=== PATIENT | male | born 1965 | race American Indian/Alaskan Native ===

== ENCOUNTER 2019-06-26 23:32 | Inpatient (IN) | payer MEDICAID ==
[2019-06-27] MEDS ORDERED: MORPHINE 4 MG/1 ML INJ IV ONE (00:04)
[2019-06-27] MEDS ORDERED: ASPIRIN 325 MG TAB PO ONE (00:04)
[2019-06-27] MEDS ORDERED: IPRATROPIUM 0.02% NEBU 2.5 ML IH ONE (00:04)
[2019-06-27] MEDS ORDERED: ALBUTEROL 2.5 MG/3 ML NEBU IH ONE (00:04)
[2019-06-27] MEDS ORDERED: NITROGLYCERIN 2% OINT 1 GM TP ONE (00:04)
[2019-06-27 00:36] LABS: Basophils # (Auto) 0.1 K/mm3 (0.0-0.1); Basophils % (Auto) 1.3 % (0.0-1.8); Eosinophils # (Auto) 0.2 K/mm3 (0.0-0.4); Eosinophils % (Auto) 2.6 % (0.0-4.3); Hematocrit 38.3 % (35.5-45.6); Hemoglobin 13.1 gm/dl (11.8-15.2); Lymphocytes # (Auto) 1.1 K/mm3 (1.2-5.4); Lymphocytes % (Auto) 18.3 % (13.4-35.0); Mean Corpuscular HGB Conc 34 % (32-34); Mean Corpuscular Volume 92 fl (84-94); Monocytes # (Auto) 0.5 K/mm3 (0.0-0.8); Monocytes % (Auto) 8.1 % (0.0-7.3); Platelet Count 254 K/mm3 (140-440); Red Blood Count 4.18 M/mm3 (3.65-5.03); Red Cell Distribution Width 15.9 % (13.2-15.2)
[2019-06-27 00:49] LABS: INR 1.24 (0.87-1.13)
[2019-06-27 00:50] LABS: Partial Thromboplastin Time 31.5 Sec. (24.2-36.6)
[2019-06-27 00:59] LABS: Calcium 9.2 mg/dL (8.4-10.2)
--- NOTE | 2019-06-27 01:11 | XRay Report ---
CHEST 1 VIEW INDICATION: CP. COMPARISON: none FINDINGS: SUPPORT DEVICES: None. HEART / MEDIASTINUM: No significant abnormality. LUNGS / PLEURA: No significant pulmonary or pleural abnormality. No pneumothorax. ADDITIONAL FINDINGS: IMPRESSION: 1. No acute findings. Signer Name: Romain Osman MD Signed: 06/27/2019 1:06 AM Workstation Name: [id number]
[2019-06-27] MEDS ORDERED: ONDANSETRON 4 MG/2 ML INJ ONE (02:11)
--- NOTE | 2019-06-27 02:15 | Emergency Department Report ---
ED Chest Pain HPI - General Stated Complaint: CHEST PAIN Time Seen by Provider: 06/26/19 23:52 - History of Present Illness Initial Comments: Patient is a 54-year-old -Burmese male with a past history of hypertension congestive heart failure with a EF of who is scheduled to have her AICD placed August 2019 as well as diabetes hypokalemia who is presenting with chest pain. Patient states approximately 1:30 PM yesterday the patient was having R even with his girlfriend and started having some heaviness in the chest. Patient states even after the argument was done and he calmed down his chest pain persisted. He has associated shortness of breath. Patient denies cough cold congestion fevers chills nausea vomiting diarrhea. Did have some diaphoresis. Patient was in the hospital at another facility approximately week ago. Patient states he was told he should've stayed in the hospital longer. He decided to leave. Patient's when asked did he have a cardiac cath states he believes he did is unsure of the results. Patient states he does not believe he has any stents at this time. Patient states pain is 8 out of 10 in severity as a heaviness. Severity scale (0 -10): 6 - Related Data Allergies Allergy/AdvReac Type Severity Reaction Status Date / Time shellfish derived Allergy Anaphylaxis Verified 06/27/19 00:29 Heart Score - HEART Score History: Moderately suspicious EKG: Non-specific Age: 45-65 Risk factors: > 3 risk factors or hx of atherosclerotic disease Troponin: 1-3x normal limit HEART Score: 6 ED Review of Systems ROS: Stated complaint: CHEST PAIN Other details as noted in HPI Comment: All other systems reviewed and negative ED Physical Exam - General General appearance: alert, in no apparent distress - Head Head exam: Present: atraumatic, normocephalic - Eye Eye exam: Present: normal appearance, PERRL, EOMI - ENT ENT exam: Present: mucous membranes moist - Neck Neck exam: Present: normal inspection - Respiratory Respiratory exam: Present: respiratory distress, wheezes (mild). Absent: normal lung sounds bilaterally, rales, rhonchi, chest wall tenderness - Cardiovascular Cardiovascular Exam: Present: regular rate, normal rhythm, normal heart sounds. Absent: systolic murmur, diastolic murmur, rubs, gallop - GI/Abdominal GI/Abdominal exam: Present: soft, normal bowel sounds. Absent: distended, tenderness, guarding, rebound - Rectal Rectal exam: Present: deferred - Extremities Exam Extremities exam: Present: normal inspection - Back Exam Back exam: Present: normal inspection - Neurological Exam Neurological exam: Present: alert, oriented X3 - Psychiatric Psychiatric exam: Present: normal affect, normal mood - Skin Skin exam: Present: warm, dry, intact, normal color. Absent: rash ED Course Vital Signs 06/27/19 06/27/19 00:36 00:51 Pulse Rate [ 90 Bilateral Throughout] Respiratory 18 Rate Respiratory 17 Rate [Bilateral Throughout] FRANKIE score - Frankie Score Age > 65: (0) No Aspirin use within the Past 7 Days: (1) Yes 3 or more CAD Risk Factors: (1) Yes 2 or more Angina events in past 24 hrs: (1) Yes Known CAD with more than 50% Stenosis: (0) No Elevated Cardiac Markers: (1) Yes ST Deviation Greater than 0.5mm: (0) No FRANKIE Score: 4 ED Medical Decision Making - Lab Data Result diagrams: 06/27/19 00:20 06/27/19 00:20 - EKG Data 06/27/19 02:15 EKG shows a sinus rhythm rate of 87 axis is normal intervals do show a prolonged QT. There is no ST segment elevations or depressions. T waves inverted laterally. Time of interpretation is 138 - Radiology Data CHEST 1 VIEW INDICATION: CP. COMPARISON: none FINDINGS: SUPPORT DEVICES: None. HEART / MEDIASTINUM: No significant abnormality. LUNGS / PLEURA: No significant pulmonary or pleural abnormality. No pneumothorax. ADDITIONAL FINDINGS: IMPRESSION: 1. No acute findings. Signer Name: Romain Osman MD Signed: 06/27/2019 1:06 AM Workstation Name: [id number] Transcribed By: WG Dictated By: Romain Osman MD Electronically Authenticated By: Romain Osman MD Signed Date/Time: 06/27/19 0106 - Medical Decision Making Patient is a 54-year-old Burmese male with significant cardiac history who is presenting with chest pain. Patient is a heart score of 6 time. The results of the patient's last cardiac catheter unknown. Patient to be admitted to the hospitalist service for cardiac evaluation. Patient's troponin was in the walker zone and serial troponins will be needed to fully rule out acute coronary syndrome. Patient received neb treatment for mild COPD exacerbation. Critical Care Time: Yes (30) Critical care attestation.: If time is entered above; I have spent that time in minutes in the direct care of this critically ill patient, excluding procedure time. ED Disposition Clinical Impression: Unstable angina, COPD with exacerbation Disposition: OP ADMIT IP TO THIS HOSP Is pt being admited?: Yes Does the pt Need Aspirin: Yes Condition: Stable Instructions: Angina (ED), Chronic Obstructive Pulmonary Disease (ED) Time of Disposition: 02:18
[2019-06-27] MEDS ORDERED: ACETAMINOPHEN 325 MG TAB PO PRN (03:02)
[2019-06-27] MEDS ORDERED: NITROGLYCERIN 0.4 MG TAB SUBL SL PRN (03:02)
[2019-06-27] MEDS ORDERED: MORPHINE 2 MG/1 ML INJ IV PRN ×2 (03:02)
[2019-06-27] MEDS ORDERED: DEXTROSE 50% IN WATER (25GM) 50 ML SYRINGE IV PRN (03:02)
[2019-06-27] MEDS: ONDANSETRON 4 MG/2 ML INJ IV PRN (03:15)
--- NOTE | 2019-06-27 03:28 | History and Physical Report ---
History of Present Illness Date of examination: 06/27/19 Date of admission: 06/27/19 Chief complaint: Chest pain History of present illness: 54-year-old -Swazi male with known history of hypertension, diabetes mellitus, COPD, congestive heart failure with ejection fraction of 10%. He presents to the emergency room complaining of chest pain. Chest pain felt like heaviness on his chest in the midsternal area. There was no radiation. Denies any tingling or numbness in his upper extremities. He indicates he was having an argument with his girlfriend after which chest pain started. He was just recently discharged from [facility] few days ago where he indicates that he had cardiac catheterization. He does not recall whether any abnormality was found and he does not recall having any stent placement. He however is scheduled for AICD placement in August next year. There is no known relieving factor for his chest pain but it is worse on exertion. He had associated diaphoresis and shortness of breath. He denies any nausea vomiting vomiting, no fever or chills, no headache or dizziness. Upon arrival in the emergency room he was found to be wheezing and was subsequently placed on nebulizing treatment. Past History Past Medical History: COPD, diabetes, heart failure, hypertension Past Surgical History: Other (Right nephrectomy) Social history: no significant social history Family history: cancer (Mother had throat cancer, sister had breast cancer.) Medications and Allergies Allergies Allergy/AdvReac Type Severity Reaction Status Date / Time shellfish derived Allergy Anaphylaxis Verified 06/27/19 00:29 Home Medications Medication Instructions Recorded Confirmed Last Taken Type Aspirin [Aspirin BABY CHEW TAB] 81 mg PO QDAY 06/27/19 06/27/19 Unknown History AtorvaSTATin [Lipitor] 10 mg PO QHS 06/27/19 06/27/19 Unknown History Insulin Glargine [Lantus VIAL] 40 unit SUB-Q QHS 06/27/19 06/27/19 Unknown History Insulin Lispro [Humalog 100 0.25 units SQ AC 06/27/19 06/27/19 Unknown History UNITS/ML Kwikpen] Isosorbide Dinitrate [Isordil 20 mg PO TID 06/27/19 06/27/19 Unknown History Titradose] Losartan Potassium 100 mg PO QDAY 06/27/19 06/27/19 Unknown History Melatonin 3 mg PO QHS 06/27/19 06/27/19 Unknown History Torsemide [Demadex] 20 mg PO QDAY 06/27/19 06/27/19 Unknown History carvediloL [Coreg] 6.25 mg PO BID 06/27/19 06/27/19 Unknown History hydrALAZINE [Apresoline TAB] 10 mg PO Q8H 06/27/19 06/27/19 Unknown History Active Meds: Active Medications Acetaminophen (Tylenol) 650 mg PO Q4H PRN PRN Reason: Pain MILD(1-3)/Fever >100.5/ALFARO Albuterol/Ipratropium (Duoneb *Not For Prn Use*) 1 ampul IH Q6HRT NANCY Aspirin (Ecotrin) 325 mg PO QDAY NANCY Dextrose (D50w (25gm) Syringe) 50 ml IV Q30MIN PRN; Protocol PRN Reason: Hypoglycemia Insulin Human Lispro (Humalog) 0 unit SUB-Q ACHS NANCY; Protocol Methylprednisolone Sodium Succinate (Solu-Medrol) 40 mg IV Q8HR NANCY Morphine Sulfate (Morphine) 2 mg IV Q4H PRN PRN Reason: Pain, Moderate (4-6) Morphine Sulfate (Morphine) 2 mg IV Q5MIN PRN PRN Reason: Chest Pain unrelieved by NTG Nitroglycerin (Nitrostat) 0.4 mg SL Q5M PRN PRN Reason: Chest Pain Ondansetron HCl (Zofran) 4 mg IV Q8H PRN PRN Reason: Nausea And Vomiting Sodium Chloride (Sodium Chloride Flush Syringe 10 Ml) 10 ml IV BID NANCY Sodium Chloride (Sodium Chloride Flush Syringe 10 Ml) 10 ml IV PRN PRN PRN Reason: LINE FLUSH Review of Systems Cardiovascular: chest pain, dyspnea on exertion Respiratory: shortness of breath, wheezing Exam - Constitutional Vitals: Temp Pulse Resp BP Pulse Ox 84 18 124/89 06/27/19 01:00 06/27/19 01:06 06/27/19 01:00 General appearance: Present: no acute distress, well-nourished - EENT Eyes: Present: PERRL, EOM intact ENT: hearing intact, clear oral mucosa, dentition normal - Neck Neck: Present: supple, normal ROM - Respiratory Respiratory: bilateral: wheezing - Cardiovascular Rhythm: regular Heart Sounds: Present: S1 & S2 - Extremities Extremities: no ischemia, pulses intact, pulses symmetrical, Full ROM Extremity abnormal: edema (1+ bilateral ankle edema) Peripheral Pulses: within normal limits - Abdominal General gastrointestinal: Present: soft, non-tender, non-distended, normal bowel sounds - Integumentary Integumentary: Present: clear, warm, dry - Musculoskeletal Musculoskeletal: strength equal bilaterally - Psychiatric Psychiatric: appropriate mood/affect, intact judgment & insight, cooperative - Neurologic Neurologic: CNII-XII intact, moves all extremities Results - Labs CBC & Chem 7: 06/27/19 03:19 06/27/19 03:19 Labs: Abnormal lab results 06/27/19 06/27/19 06/27/19 Range/Units 00:20 00:20 00:20 RDW 15.9 H (13.2-15.2) % [place] % (Auto) 8.1 H (0.0-7.3) % Lymph # 1.1 L (1.2-5.4) K/mm3 PT 15.8 H (12.2-14.9) Sec. INR 1.24 H (0.87-1.13) Potassium 3.4 L (3.6-5.0) mmol/L BUN 40 H (9-20) mg/dL Creatinine 3.0 H (0.8-1.5) mg/dL Glucose 152 H (75-100) mg/dL Troponin T 0.040 H (0.00-0.029) ng/mL NT-Pro-B Natriuret Pep 6692 H (0-900) pg/mL Assessment and Plan - Patient Problems (1) Unstable angina Current Visit: Yes Status: Acute Plan to address problem: Patient admitted to telemetry. We will monitor EKG and also monitor cardiac enzymes. We will place a consult to cardiology for further evaluation and recommendation. Patient placed on daily aspirin, sublingual nitroglycerin and IV morphine as needed for chest pain (2) COPD with exacerbation Current Visit: Yes Status: Acute Plan to address problem: Patient placed on nebulizing treatments and also on IV steroid. We will keep oxygen saturation greater or equal to 92%. (3) JEREMY (acute kidney injury) Current Visit: Yes Status: Acute Plan to address problem: We will monitor BUN and creatinine. Will place diuretics on hold at this time. We await further recommendation from cardiology in view of his history of conges tive heart failure. (4) Diabetes mellitus Current Visit: Yes Status: Acute Plan to address problem: We will monitor Accu-Cheks and resume patient's routine home medications. (5) DVT prophylaxis Current Visit: Yes Status: Acute Plan to address problem: We will place patient on subcutaneous heparin. (6) Full code status Current Visit: Yes Status: Acute
[2019-06-27 03:45] LABS: Basophils # (Auto) 0.1 K/mm3 (0.0-0.1); Basophils % (Auto) 1.2 % (0.0-1.8); Eosinophils # (Auto) 0.1 K/mm3 (0.0-0.4); Eosinophils % (Auto) 2.8 % (0.0-4.3); Hematocrit 36.8 % (35.5-45.6); Hemoglobin 12.3 gm/dl (11.8-15.2); Lymphocytes # (Auto) 1.1 K/mm3 (1.2-5.4); Lymphocytes % (Auto) 22.7 % (13.4-35.0); Mean Corpuscular HGB Conc 33 % (32-34); Mean Corpuscular Volume 92 fl (84-94); Monocytes # (Auto) 0.6 K/mm3 (0.0-0.8); Monocytes % (Auto) 11.9 % (0.0-7.3); Platelet Count 230 K/mm3 (140-440); Red Blood Count 4.02 M/mm3 (3.65-5.03); Red Cell Distribution Width 15.7 % (13.2-15.2)
[2019-06-27 04:07] LABS: Calcium 9.2 mg/dL (8.4-10.2)
[2019-06-27] MEDS: methylPREDNISolone Sod Succinate 40 MG/1 ML INJ IV SCH ×3 (05:40→21:55)
[2019-06-27 06:10] LABS: Chol/HDL Ratio 4.16 %
[2019-06-27] MEDS: IPRATROPIUM/ALBUTEROL SULFATE 3 ML AMPUL.NEB IH SCH ×3 (07:28→21:09)
[2019-06-27] MEDS ORDERED: INSULIN LISPRO SQ SCH (07:30)
[2019-06-27] MEDS: INSULIN LISPRO 100 UNIT/ML SUB-Q SCH ×4 (08:08→22:06)
[2019-06-27] MEDS ORDERED: NON-FORMULARY EACH (Losartan Potassium [Losartan Potassium] 100 MG) PO SCH (10:00)
[2019-06-27] MEDS: LOSARTAN 50 MG TAB PO SCH (10:17)
[2019-06-27] MEDS: hydrALAZINE 10 MG TAB PO SCH ×2 (10:18→17:28)
[2019-06-27] MEDS: HEPARIN 5,000 UNIT/1 ML VIAL SUB-Q SCH ×2 (10:18→17:28)
[2019-06-27] MEDS: ISOSORBIDE DINITRATE 20 MG TAB PO SCH ×3 (10:18→21:57)
[2019-06-27] MEDS: carvediloL 6.25 MG TAB PO SCH ×2 (10:18→21:55)
[2019-06-27 11:20] LABS: Amphetamine Screen,Urine PRESUMPTIVE NEGATIVE; Benzodiazepines Screen,Urine PRESUMPTIVE NEGATIVE; Cannabinoid Screen,Urine PRESUMPTIVE NEGATIVE; Cocaine Screen,Urine PRESUMPTIVE NEGATIVE; Methadone Screen,Urine PRESUMPTIVE NEGATIVE; Opiate Screen,Urine PRESUMPTIVE NEGATIVE
--- NOTE | 2019-06-27 14:01 | Consultation ---
History of Present Illness Consult date: 06/27/19 Consult reason: chest pain (Patient was discahrged from [facility] after hospitalization for 12 days only few days before,yesterday he started having anterior,retrosternal/left sided chest pains,starting in afternoon and not getting better,hence he came to ER,was evaluated and admiited for futher managenet.) History of present illness: Patient was recently discharged from [facility]. It appears patient had extensive cardiac workup. He uses a history that his ejection fraction is 10%, and he is planning to have ICD inserted in July. He is being followed by a block sawyer in name of which he does not remember. He admits to having multiple testing done. He presented to the emergency room at [facility] because of persistent chest pain. No shortness of breath. No leg swelling. Patient use history of essential hypertension of many many years duration, history of diabetes mellitus of more than 12 years duration. Also admits to having bronchial asthma. Used to smoke in the past but not presently. Use to drink alcohol quite a bit but presently drinks only small amount according to him. No drug abuse. Denied any orthopnea, no palpitations, no leg swelling. No fever, no chills. No coughing. Past History Past Medical History: COPD, diabetes (>10 years.), heart failure, hypertension (very long standing duration.) Past Surgical History: Other (Right nephrectomy,few years ago.) Social history: no significant social history Family history: cancer (Mother had throat cancer, sister had breast cancer.) Medications and Allergies Allergies Allergy/AdvReac Type Severity Reaction Status Date / Time shellfish derived Allergy Anaphylaxis Verified 06/27/19 00:29 Home Medications Medication Instructions Recorded Confirmed Last Taken Type Aspirin [Aspirin BABY CHEW TAB] 81 mg PO QDAY 06/27/19 06/27/19 Unknown History AtorvaSTATin [Lipitor] 10 mg PO QHS 06/27/19 06/27/19 Unknown History Insulin Glargine [Lantus VIAL] 40 unit SUB-Q QHS 06/27/19 06/27/19 Unknown Hi story Insulin Lispro [Humalog 100 0.25 units SQ AC 06/27/19 06/27/19 Unknown History UNITS/ML Kwikpen] Isosorbide Dinitrate [Isordil 20 mg PO TID 06/27/19 06/27/19 Unknown History Titradose] Losartan Potassium 100 mg PO QDAY 06/27/19 06/27/19 Unknown History Melatonin 3 mg PO QHS 06/27/19 06/27/19 Unknown History Torsemide [Demadex] 20 mg PO QDAY 06/27/19 06/27/19 Unknown History carvediloL [Coreg] 6.25 mg PO BID 06/27/19 06/27/19 Unknown History hydrALAZINE [Apresoline TAB] 10 mg PO Q8H 06/27/19 06/27/19 Unknown History Active Meds: Active Medications Acetaminophen (Tylenol) 650 mg PO Q4H PRN PRN Reason: Pain MILD(1-3)/Fever >100.5/ALFARO Albuterol/Ipratropium (Duoneb *Not For Prn Use*) 1 ampul IH Q6HRT [facility] Last Admin: 06/27/19 13:08 Dose: 1 ampul Documented by: Aspirin (Ecotrin) 325 mg PO QDAY [facility] Atorvastatin Calcium (Atorvastatin) 10 mg PO QHS [facility] Carvedilol (Coreg) 6.25 mg PO BID [facility] Last Admin: 06/27/19 10:18 Dose: 6.25 mg Documented by: Dextrose (D50w (25gm) Syringe) 50 ml IV Q30MIN PRN; Protocol PRN Reason: Hypoglycemia Heparin Sodium (Porcine) (Heparin) 5,000 unit SUB-Q Q8H [facility] Last Admin: 06/27/19 10:18 Dose: 5,000 unit Documented by: Hydralazine HCl (Apresoline) 10 mg PO Q8H [facility] Last Admin: 06/27/19 10:18 Dose: 10 mg Documented by: Insulin Glargine (Lantus) 40 units SUB-Q QHS [facility] Insulin Human Lispro (Humalog) 0 unit SUB-Q [facility]; Protocol Isosorbide Dinitrate (Isordil Titradose) 20 mg PO TID [facility] Last Admin: 06/27/19 10:18 Dose: 20 mg Documented by: Losartan Potassium (Cozaar) 100 mg PO QDAY [facility] Last Admin: 06/27/19 10:17 Dose: 100 mg Documented by: Methylprednisolone Sodium Succinate (Solu-Medrol) 40 mg IV Q8HR [facility] Last Admin: 06/27/19 05:40 Dose: 40 mg Documented by: Miscellaneous Medication (Insulin Lispro [Humalog 100 Units/Ml Kwikpen]) 0.25 units SQ AC NANCY Morphine Sulfate (Morphine) 2 mg IV Q4H PRN PRN Reason: Pain, Moderate (4-6) Morphine Sulfate (Morphine) 2 mg IV Q5MIN PRN PRN Reason: Chest Pain unrelieved by NTG Nitroglycerin (Nitrostat) 0.4 mg SL Q5M PRN PRN Reason: Chest Pain Ondansetron HCl (Zofran) 4 mg IV Q8H PRN PRN Reason: Nausea And Vomiting Last Admin: 06/27/19 03:15 Dose: 4 mg Documented by: Sodium Chloride (Sodium Chloride Flush Syringe 10 Ml) 10 ml IV BID NANCY Sodium Chloride (Sodium Chloride Flush Syringe 10 Ml) 10 ml IV PRN PRN PRN Reason: LINE FLUSH Review of Systems Constitutional: weakness, no weight loss Ears, nose, mouth and throat: no ear discharge Respiratory: no cough Gastrointestinal: no abdominal pain Genitourinary Male: no hematuria Rectal: no bleeding Musculoskeletal: no neck pain Integumentary: no rash Neurological: no head injury Psychiatric: no anxiety Endocrine: no cold intolerance Hematologic/Lymphatic: no easy bleeding Allergic/Immunologic: no urticaria Physical Examination Vital Signs Temp Pulse Resp BP Pulse Ox 98 F 74 18 122/78 98 06/27/19 00:10 06/27/19 00:10 06/27/19 00:10 06/27/19 00:10 06/27/19 00:10 General appearance: no acute distress HEENT: Positive: EOMI Neck: Positive: neck supple, trachea midline Cardiac: Positive: Reg Rate and Rhythm, S3, S4. Negative: Audible Murmur Lungs: Positive: Normal Breath Sounds Neuro: Positive: Grossly Intact Abdomen: Positive: Unremarkable Male genitourinary: Positive: deferred Skin: Positive: Clear Extremities: Present: edema Results 06/27/19 03:19 06/27/19 03:19 Coagulation 06/27/19 Range/Units 00:20 PT 15.8 H (12.2-14.9) Sec. INR 1.24 H (0.87-1.13) APTT 31.5 (24.2-36.6) Sec. Lipids 12/25/19 Range/Units 00:20 Triglycerides 75 (2-149) mg/dL Cholesterol 125 (50-199) mg/dL HDL Cholesterol 30 L (40-59) mg/dL Cholesterol/HDL Ratio 4.16 % CBC 06/27/19 06/27/19 Range/Units 00:20 03:19 WBC 5.9 5.0 (4.5-11.0) K/mm3 RBC 4.18 4.02 (3.65-5.03) M/mm3 Hgb 13.1 12.3 (11.8-15.2) gm/dl Hct 38.3 36.8 (35.5-45.6) % Plt Count 254 230 (140-440) K/mm3 Lymph # 1.1 L 1.1 L (1.2-5.4) K/mm3 [place] # 0.5 0.6 (0.0-0.8) K/mm3 Eos # 0.2 0.1 (0.0-0.4) K/mm3 Baso # 0.1 0.1 (0.0-0.1) K/mm3 Comprehensive Metabolic Panel 06/27/19 06/27/19 Range/Units 00:20 03:19 Sodium 142 142 (137-145) mmol/L Potassium 3.4 L 3.5 L (3.6-5.0) mmol/L Chloride 99.7 102.6 (98-107) mmol/L Carbon Dioxide 25 23 (22-30) mmol/L BUN 40 H 40 H (9-20) mg/dL Creatinine 3.0 H 2.9 H (0.8-1.5) mg/dL Glucose 152 H 114 H (75-100) mg/dL Calcium 9.2 9.2 (8.4-10.2) mg/dL EKG interpretations - Telemetry EKG Rhythm: Sinus Rhythm (EKG done in the emergency room showed sinus rhythm, nonspecific ST-T changes, left axis deviation, multiformed PVCs.) Assessment and Plan 54-year-old gentleman was admitted with persistent chest pain. Patient was hospitalized recently for 12 days, was diagnosed to have according to him congestive heart failure and ejection fraction of 10%. Apparently he is being scheduled for AICD placement. It appears patient at the cardiac workup done at [facility]. He chest pains appear to be atypical. EKG is not showing any acute changes. Considering this will continue present medical therapy. Jia angel also has underlying chronic kidney disease and being followed by a mid level clinician. Patient is being followed by his primary care physician for many years for his hypertension and diabetes mellitus and asthma. EKG done in the emergency room showed sinus rhythm, nonspecific ST-T changes and multiformed PVCs. Chest x-ray was unremarkable. Patient's kidney functions suggest patient has chronic kidney disease. Considering this no invasive workup is planned. We'll try to get records from [facility]. If he needs the other workup then we can schedule for the same. For now patient appears to be stable and continue medical therapy until we get further information. Medical records being requested today. Discussed with the patient and is agreeable with the plan. - Patient Problems (1) Essential hypertension Current Visit: Yes Status: Acute (2) JEREMY (acute kidney injury) Current Visit: Yes Status: Acute (3) COPD with exacerbation Current Visit: Yes Status: Acute (4) Diabetes mellitus Current Visit: Yes Status: Acute (5) Unstable angina Current Visit: Yes Status: Acute (6) History of nephrectomy, right Current Visit: No Status: Chronic
--- NOTE | 2019-06-27 14:54 | Event Note ---
Date: 06/27/19 Patient seen and examined 54-year-old -B[place] male with known history of hypertension, diabetes mellitus, COPD, congestive heart failure with ejection fraction of 10%. He presents to the emergency room complaining of chest pain. Cardiology consulted, continue current management and plan. Ordered for medical records from [facility]. Further management per cardiology recommendation.
[2019-06-27] MEDS: INSULIN GLARGINE 100 UNITS/ML SUB-Q SCH (22:06)
[2019-06-28] MEDS ORDERED: ALBUTEROL 2.5 MG/3 ML NEBU IH PRN (00:01)
[2019-06-28] MEDS: hydrALAZINE 10 MG TAB PO SCH ×3 (00:58→17:15)
[2019-06-28] MEDS: HEPARIN 5,000 UNIT/1 ML VIAL SUB-Q SCH ×3 (01:41→18:48)
[2019-06-28] MEDS: methylPREDNISolone Sod Succinate 40 MG/1 ML INJ IV SCH (05:36)
[2019-06-28] MEDS: IPRATROPIUM/ALBUTEROL SULFATE 3 ML AMPUL.NEB IH SCH ×3 (07:49→21:05)
[2019-06-28 08:49] LABS: Basophils % (Auto) 0.3 % (0.0-1.8); Hematocrit 40.9 % (35.5-45.6); Hemoglobin 13.4 gm/dl (11.8-15.2); Lymphocytes # (Auto) 0.8 K/mm3 (1.2-5.4); Lymphocytes % (Auto) 18.9 % (13.4-35.0); Mean Corpuscular HGB Conc 33 % (32-34); Mean Corpuscular Volume 92 fl (84-94); Monocytes # (Auto) 0.1 K/mm3 (0.0-0.8); Monocytes % (Auto) 3.3 % (0.0-7.3); Platelet Count 267 K/mm3 (140-440); Red Blood Count 4.46 M/mm3 (3.65-5.03); Red Cell Distribution Width 15.9 % (13.2-15.2)
[2019-06-28 08:56] LABS: INR 1.23 (0.87-1.13)
[2019-06-28] MEDS: ISOSORBIDE DINITRATE 20 MG TAB PO SCH ×3 (09:00→21:44)
[2019-06-28] MEDS: INSULIN LISPRO 100 UNIT/ML SUB-Q SCH ×4 (09:01→21:48)
[2019-06-28 09:05] LABS: Calcium 9.6 mg/dL (8.4-10.2)
[2019-06-28] MEDS: ASPIRIN EC 325 MG TAB PO SCH (11:51)
[2019-06-28] MEDS: carvediloL 6.25 MG TAB PO SCH ×2 (11:51→21:44)
[2019-06-28] MEDS: LOSARTAN 50 MG TAB PO SCH (11:51)
--- NOTE | 2019-06-28 16:16 | Progress Note ---
Assessment and Plan / Unstable angina Patient admitted to telemetry. We will monitor EKG and also monitor cardiac enzymes. Consulted cardiology for further evaluation and recommendation. Continue on daily aspirin, sublingual nitroglycerin and IV morphine as needed for chest pain Wait for medical records from the outside facility for further plan of care ;/ COPD with exacerbation Patient placed on nebulizing treatments. We will keep oxygen saturation greater or equal to 92%. We'll discontinue steroids because of hyperglycemia / JEREMY (acute kidney injury) versus EKG We will monitor BUN and creatinine. Will hold diuretics at this time. We await further recommendation from cardiology in view of his history of congestive heart failure. If no improvement by tomorrow we'll consult nephrology / Diabetes mellitus Uncontrolled this morning likely due to steroids We will monitor Accu-Cheks and adjust insulin dose to better control diabetes /Acute on chronic CHFrEf 10% - We will monitor in's and O's, diet and fluid restriction - Cannot diurese due to elevated creatinine -Cardiologic consulted, wait for medical records from outlying facility / DVT prophylaxis We will place patient on subcutaneous heparin. Subjective Date of service: 06/28/19 Interval history: Patient seen and examined. Medical records and medication list reviewed. No acute event overnight noted by the RN. Patient continued to complaints of difficulty breathing and intermittent chest pain. Patient is tolerating diet. Blood glucose noted to be above 400 this morning Patient is a very poor historian Discussed plan of care at bedside with patient. Objective - Exam Narrative Exam: GENERAL: well-developed -Welsh male lying on bed appeared to be in no discomfort. HEENT: Normocephalic. Atraumatic. No conjunctival congestion or icterus. Patient has moist mucous membranes. NECK: Supple. Trachea midline. CHEST/LUNGS: Diffuse Rales auscultated bilaterally, breathing nonlabored. HEART/CARDIOVASCULAR: Regular in rate and rhythm. S1 and S2 positive. ABDOMEN: Abdomen is soft, nontender. Patient has normal bowel sounds. SKIN: There is no rash. Warm and dry. NEURO: No focal motor deficit. Follows command. MUSCULOSKELETAL: No joint effusion or tenderness. EXTRIMITY: No edema, no cyanosis or clubbing. PSYCH: Cooperative. - Constitutional Vitals: Vital Signs - 12hr 06/28/19 06/28/19 06/28/19 07:51 07:53 08:54 Pulse Rate 81 Pulse Rate [ 94 H Bilateral Throughout] Respiratory 18 Rate [Bilateral Throughout] Blood Pressure 125/84 O2 Sat by Pulse 97 94 Oximetry 06/28/19 06/28/19 09:00 14:00 Pulse Rate 82 Pulse Rate [ 96 H Bilateral Throughout] Respiratory 18 Rate [Bilateral Throughout] Blood Pressure 125/84 O2 Sat by Pulse 98 Oximetry - Labs CBC & Chem 7: 06/28/19 08:25 06/29/19 06:04 Labs: Abnormal lab results 06/27/19 06/27/19 06/28/19 Range/Units 16:10 20:56 05:29 WBC (4.5-11.0) K/mm3 RDW (13.2-15.2) % Lymph # (1.2-5.4) K/mm3 Seg Neutrophils % (40.0-70.0) % PT (12.2-14.9) Sec. INR (0.87-1.13) Sodium (137-145) mmol/L Chloride (98-107) mmol/L Carbon Dioxide (22-30) mmol/L BUN (9-20) mg/dL Creatinine (0.8-1.5) mg/dL Glucose (75-100) mg/dL POC Glucose 437 H 477 H 351 H (70-105) 06/28/19 06/28/19 06/28/19 Range/Units 08:15 08:25 08:25 WBC 4.1 L (4.5-11.0) K/mm3 RDW 15.9 H (13.2-15.2) % Lymph # 0.8 L (1.2-5.4) K/mm3 Seg Neutrophils % 77.5 H (40.0-70.0) % PT 15.7 H (12.2-14.9) Sec. INR 1.23 H (0.87-1.13) Sodium (137-145) mmol/L Chloride (98-107) mmol/L Carbon Dioxide (22-30) mmol/L BUN (9-20) mg/dL Creatinine (0.8-1.5) mg/dL Glucose (75-100) mg/dL POC Glucose 348 H (70-105) 06/28/19 06/28/19 Range/Units 08:25 12:36 WBC (4.5-11.0) K/mm3 RDW (13.2-15.2) % Lymph # (1.2-5.4) K/mm3 Seg Neutrophils % (40.0-70.0) % PT (12.2-14.9) Sec. INR (0.87-1.13) Sodium 135 L (137-145) mmol/L Chloride 96.9 L (98-107) mmol/L Carbon Dioxide 21 L (22-30) mmol/L BUN 48 H (9-20) mg/dL Creatinine 2.9 H (0.8-1.5) mg/dL Glucose 416 H (75-100) mg/dL POC Glucose 489 H (70-105)
--- NOTE | 2019-06-28 16:29 | Progress Note ---
Assessment and Plan HFrEF Pt with reported EF 10%. Cont Coreg and hold losartan and diuretics at this time in setting of renal insufficiency. F/u echo. CMP Pt with reported EF 10% and is scheduled for AICD implantation in July at [facility]. Medical records requested. Cont Coreg and hold losartan at this time in setting of renal insufficiency. F/u echo. Chest pain Currently resolved. Karlene minmally elevated and relatively flat. ECG with no acute ischemic changes. Await medical records from [place] and consider ischemic evaluation here if unable to obtain records. F/u echo. JEREMY on CKD Pt reports h/o CKD. F/u BMP and consider nephrology consultation per primary. No ACEI/ARB or diuretics at this time. HTN DM with hyperglycemia Management per primary. The patient has been seen in conjunction with Dr. Flores who agrees with the assessment and plan of care. Subjective Date of service: 06/28/19 Principal diagnosis: HF; COPD exac Interval history: pt resting in bed, still with SOB and wheezing. in SR on tele with freq 3-4 beat runs NSVT. Objective Last Vital Signs Temp 98.2 F 06/28/19 04:07 Pulse 96 H 06/28/19 14:00 Resp 18 06/28/19 14:00 BP 125/84 06/28/19 09:00 Pulse Ox 98 06/28/19 14:00 - Physical Examination General: No Apparent Distress HEENT: Positive: EOMI Neck: Positive: neck supple, trachea midline Cardiac: Positive: Reg Rate and Rhythm, S1/S2 Lungs: Positive: Decreased Breath Sounds Neuro: Positive: Grossly Intact Abdomen: Positive: Unremarkable Skin: Positive: Clear Extremities: Present: edema - Labs and Meds Coagulation 06/28/19 Range/Units 08:25 PT 15.7 H (12.2-14.9) Sec. INR 1.23 H (0.87-1.13) APTT 32.0 (24.2-36.6) Sec. CBC 06/28/19 Range/Units 08:25 WBC 4.1 L (4.5-11.0) K/mm3 RBC 4.46 (3.65-5.03) M/mm3 Hgb 13.4 (11.8-15.2) gm/dl Hct 40.9 (35.5-45.6) % Plt Count 267 (140-440) K/mm3 Lymph # 0.8 L (1.2-5.4) K/mm3 [place] # 0.1 (0.0-0.8) K/mm3 Eos # 0.0 (0.0-0.4) K/mm3 Baso # 0.0 (0.0-0.1) K/mm3 Comprehensive Metabolic Panel 06/28/19 Range/Units 08:25 Sodium 135 L (137-145) mmol/L Potassium 4.6 D (3.6-5.0) mmol/L Chloride 96.9 L (98-107) mmol/L Carbon Dioxide 21 L (22-30) mmol/L BUN 48 H (9-20) mg/dL Creatinine 2.9 H (0.8-1.5) mg/dL Glucose 416 H (75-100) mg/dL Calcium 9.6 (8.4-10.2) mg/dL
[2019-06-28] MEDS: INSULIN GLARGINE 100 UNITS/ML SUB-Q SCH (21:45)
[2019-06-29] MEDS: HEPARIN 5,000 UNIT/1 ML VIAL SUB-Q SCH ×3 (00:22→18:01)
[2019-06-29] MEDS: hydrALAZINE 10 MG TAB PO SCH ×3 (00:22→18:01)
[2019-06-29] MEDS: ISOSORBIDE DINITRATE 20 MG TAB PO SCH ×3 (08:00→22:04)
[2019-06-29] MEDS: INSULIN LISPRO 100 UNIT/ML SUB-Q SCH ×4 (10:00→22:05)
[2019-06-29] MEDS: carvediloL 6.25 MG TAB PO SCH ×2 (10:15→22:05)
[2019-06-29] MEDS: ASPIRIN EC 325 MG TAB PO SCH (10:16)
[2019-06-29] MEDS: IPRATROPIUM/ALBUTEROL SULFATE 3 ML AMPUL.NEB IH SCH ×3 (10:28→21:04)
--- NOTE | 2019-06-29 11:24 | Progress Note ---
Assessment and Plan HFrEF Cont Coreg and hold losartan and diuretics at this time in setting of renal insufficiency. Nephrology consultation pending. Echo 06/27/2019 reviewed - EF 30-35%, restrictive diastolic filling, RV mild to mod dilated, RA mod dilated, mild AR. Pt reports that he has LifeVest at home. Compliance with LifeVest encouraged. CMP Pt with reported EF 10% and is scheduled for AICD implantation in July at [facility]. Medical records requested. Echo 06/27/2019 reviewed - EF 30-35%, restrictive diastolic filling, RV mild to mod dilated, RA mod dilated, mild AR. Cont Coreg and hold losartan at this time in setting of renal insufficiency. Pt reports that he has LifeVest at home. Compliance with LifeVest encouraged. Chest pain Currently resolved. Karlene minimally elevated and relatively flat. ECG with no acute ischemic changes. Await medical records from [place] and consider ischemic evaluation here if unable to obtain records. Echo 06/27/2019 reviewed - EF 30-35%, restrictive diastolic filling, RV mild to mod dilated, RA mod dilated, mild AR. JEREMY on CKD Pt reports h/o CKD. Nephrology consultation pending. No ACEI/ARB or diuretics at this time. HTN DM with hyperglycemia Management per primary. The patient has been seen in conjunction with Dr. Flores who agrees with the assessment and plan of care. Subjective Date of service: 06/29/19 Principal diagnosis: HF; COPD exac Interval history: pt resting in bed, states he is feeling better today. in SR on tele with freq 3- 4 beat runs NSVT overnight, pt asymptomatic. Objective Last Vital Signs Temp 98.4 F 06/29/19 08:14 Pulse 83 06/29/19 10:29 Resp 18 06/29/19 10:29 BP 105/68 06/29/19 10:15 Pulse Ox 96 06/29/19 10:41 - Physical Examination General: No Apparent Distress HEENT: Positive: EOMI Neck: Positive: neck supple, trachea midline Cardiac: Positive: Reg Rate and Rhythm, S1/S2 Lungs: Positive: Decreased Breath Sounds Neuro: Positive: Grossly Intact Abdomen: Positive: Unremarkable Skin: Positive: Clear Extremities: Present: edema - Labs and Meds Comprehensive Metabolic Panel 06/29/19 Range/Units 06:04 Sodium 137 (137-145) mmol/L Potassium 4.1 (3.6-5.0) mmol/L Chloride 101.5 (98-107) mmol/L Carbon Dioxide 25 (22-30) mmol/L BUN 48 H (9-20) mg/dL Creatinine 3.0 H (0.8-1.5) mg/dL Glucose 211 H (75-100) mg/dL Calcium 9.0 (8.4-10.2) mg/dL
[2019-06-29] MEDS: INSULIN REGULAR, HUMAN 100 UNITS/1 ML SUB-Q SCH ×2 (13:40→18:06)
--- NOTE | 2019-06-29 14:11 | Progress Note ---
Assessment and Plan / Unstable angina Patient admitted to telemetry. We will monitor EKG and also monitor cardiac enzymes. Consulted cardiology for further evaluation and recommendation. Continue on daily aspirin, sublingual nitroglycerin and IV morphine as needed for chest pain Wait for medical records from the outside facility for further plan of care Echo 06/27/2019 reviewed - EF 30-35%, /Acute on chronic CHFrEf - We will monitor in's and O's, diet and fluid restriction - Cannot diurese due to elevated creatinine -Cardiologic consulted, wait for medical records from outlying facility - scheduled for AICD implantation in July at [facility]. Medical records requested. - Echo 06/27/2019 reviewed - EF 30-35%, Pt reports that he has LifeVest at home ;/ COPD with exacerbation Patient placed on nebulizing treatments. We will keep oxygen saturation greater or equal to 92%. off steroids because of hyperglycemia / JEREMY (acute kidney injury) versus EKG We will monitor BUN and creatinine. Will hold diuretics at this time. We await further recommendation from cardiology in view of his history of congestive heart failure. consult nephrology as Cr has not improved / Diabetes mellitus, uncontrolled We will monitor Accu-Cheks and adjust insulin dose to better control diabetes / DVT prophylaxis We will place patient on subcutaneous heparin. Subjective Date of service: 06/29/19 Principal diagnosis: HF; COPD exac Interval history: Patient seen and examined. Medical records and medication list reviewed. No acute event overnight noted by the RN. Patient continued to complaints of difficulty breathing and intermittent chest p ain. Patient is tolerating diet. Patient is a very poor historian, renal function has not improve Discussed plan of care at bedside with patient. Objective - Exam Narrative Exam: GENERAL: well-developed -Sudanese male lying on bed appeared to be in no discomfort. HEENT: Normocephalic. Atraumatic. No conjunctival congestion or icterus. Patient has moist mucous membranes. NECK: Supple. Trachea midline. CHEST/LUNGS: Diffuse Rales auscultated bilaterally, breathing nonlabored. HEART/CARDIOVASCULAR: Regular in rate and rhythm. S1 and S2 positive. ABDOMEN: Abdomen is soft, nontender. Patient has normal bowel sounds. SKIN: There is no rash. Warm and dry. NEURO: No focal motor deficit. Follows command. MUSCULOSKELETAL: No joint effusion or tenderness. EXTRIMITY: No edema, no cyanosis or clubbing. PSYCH: Cooperative. - Constitutional Vitals: Vital Signs - 12hr 06/29/19 06/29/19 06/29/19 04:19 06:00 08:03 Temperature 98.1 F Pulse Rate 76 86 82 Pulse Rate [ Bilateral Throughout] Respiratory 18 Rate Respiratory Rate [Bilateral Throughout] Blood Pressure 98/72 110/71 Blood Pressure [Right] O2 Sat by Pulse 97 Oximetry 06/29/19 06/29/19 06/29/19 08:14 08:15 10:15 Temperature 98.4 F Pulse Rate 84 84 87 Pulse Rate [ Bilateral Throughout] Respiratory 18 Rate Respiratory Rate [Bilateral Throughout] Blood Pressure 110/71 105/68 Blood Pressure 110/71 [Right] O2 Sat by Pulse 99 Oximetry 06/29/19 06/29/19 06/29/19 10:29 10:41 12:34 Temperature 97.2 F L Pulse Rate 90 Pulse Rate [ 83 Bilateral Throughout] Respiratory 20 Rate Respiratory 18 Rate [Bilateral Throughout] Blood Pressure 128/87 Blood Pressure [Right] O2 Sat by Pulse 96 97 Oximetry 06/29/19 13:57 Temperature Pulse Rate 78 Pulse Rate [ Bilateral Throughout] Respiratory Rate Respiratory Rate [Bilateral Throughout] Blood Pressure 95/64 Blood Pressure [Right] O2 Sat by Pulse Oximetry - Labs CBC & Chem 7: 06/28/19 08:25 06/30/19 08:52 Labs: Abnormal lab results 06/28/19 06/28/19 06/29/19 Range/Units 16:54 20:44 06:04 BUN 48 H (9-20) mg/dL Creatinine 3.0 H (0.8-1.5) mg/dL Glucose 211 H (75-100) mg/dL POC Glucose 386 H 311 H (70-105) 06/29/19 06/29/19 Range/Units 08:27 12:43 BUN (9-20) mg/dL Creatinine (0.8-1.5) mg/dL Glucose (75-100) mg/dL POC Glucose 183 H 237 H (70-105)
[2019-06-29] MEDS ORDERED: MAGNESIUM HYDROXIDE (MOM) ORAL LIQD UDC PO PRN (14:30)
[2019-06-29] MEDS: INSULIN GLARGINE 100 UNITS/ML SUB-Q SCH (22:05)
--- NOTE | 2019-06-29 23:39 | Consultation ---
History of Present Illness - Reason for Consult Consult date: 06/29/19 acute renal failure, chronic renal failure - History of Present Illness The patient is 54 YO AAM with known history of Hypertension, Diabetes mellitus, COPD, CHF with EF 10%, multisubstance abuse, R nephrectomy for RCCand CKD stage 3b who presented to [facility] ED 06/27 with c/o chest pain. Chest pain felt like heaviness on his chest in the midsternal area, with no radiation. He also reports having dry cough and sob. He was discharged from [facility] on 06/19/19 where he was treated for Acute on chronic combined systolic and diastolic CHF and JEREMY. Patient denies fever, chills, dysuria, hematuria, rash, leg swelling, dizziness, weakness or hemoptysis. Creatinine is 3 today. His creatinine was 2.9 on 06/11/19 at outside hospital. Nephrology was consulted for further evaluation. Past History Past Medical History: COPD, diabetes (>10 years.), heart failure, hypertension (very long standing duration.), hyperlipidemia, renal failure Past Surgical History: Other (Right nephrectomy,few years ago.) Social history: no significant social history Family history: cancer (Mother had throat cancer, sister had breast cancer.) Medications and Allergies Allergies Allergy/AdvReac Type Severity Reaction Status Date / Time shellfish derived Allergy Anaphylaxis Verified 06/27/19 00:29 Home Medications Medication Instructions Recorded Confirmed Last Taken Type Aspirin [Aspirin BABY CHEW TAB] 81 mg PO QDAY 06/27/19 06/27/19 Unknown History AtorvaSTATin [Lipitor] 10 mg PO QHS 06/27/19 06/27/19 Unknown History Insulin Glargine [Lantus VIAL] 40 unit SUB-Q QHS 06/27/19 06/27/19 Unknown History Insulin Lispro [Humalog 100 0.25 units SQ AC 06/27/19 06/27/19 Unknown History UNITS/ML Kwikpen] Isosorbide Dinitrate [Isordil 20 mg PO TID 06/27/19 06/27/19 Unknown History Titradose] Losartan Potassium 100 mg PO QDAY 06/27/19 06/27/19 Unknown History Melatonin 3 mg PO QHS 06/27/19 06/27/19 Unknown History Torsemide [Demadex] 20 mg PO QDAY 06/27/19 06/27/19 Unknown History carvediloL [Coreg] 6.25 mg PO BID 06/27/19 06/27/19 Unknown History hydrALAZINE [Apresoline TAB] 10 mg PO Q8H 06/27/19 06/27/19 Unknown History Active Meds: Active Medications Acetaminophen (Tylenol) 650 mg PO Q4H PRN PRN Reason: Pain MILD(1-3)/Fever >100.5/ALFARO Albuterol (Proventil) 2.5 mg IH Q4HRT PRN PRN Reason: Shortness Of Breath Albuterol/Ipratropium (Duoneb *Not For Prn Use*) 1 ampul IH TIDRT [facility] Last Admin: 06/29/19 21:04 Dose: 1 ampul Documented by: Aspirin (Ecotrin) 325 mg PO QDAY [facility] Last Admin: 06/29/19 10:16 Dose: 325 mg Documented by: Atorvastatin Calcium (Atorvastatin) 10 mg PO QHS [facility] Last Admin: 06/29/19 22:04 Dose: 10 mg Documented by: Carvedilol (Coreg) 6.25 mg PO BID [facility] Last Admin: 06/29/19 22:05 Dose: 6.25 mg Documented by: Dextrose (D50w (25gm) Syringe) 50 ml IV Q30MIN PRN; Protocol PRN Reason: Hypoglycemia Heparin Sodium (Porcine) (Heparin) 5,000 unit SUB-Q Q8H [facility] Last Admin: 06/29/19 18:01 Dose: 5,000 unit Documented by: Hydralazine HCl (Apresoline) 10 mg PO Q8H [facility] Last Admin: 06/29/19 18:01 Dose: 10 mg Documented by: Insulin Glargine (Lantus) 40 units SUB-Q QHS [facility] Last Admin: 06/29/19 22:05 Dose: 40 units Documented by: Insulin Human Lispro (Humalog) 0 unit SUB-Q [facility]; Protocol Last Admin: 06/29/19 22:05 Dose: 3 unit Documented by: Insulin Human Regular (Humulin R) 5 units SUB-Q [facility] Last Admin: 06/29/19 18:06 Dose: 5 units Documented by: Isosorbide Dinitrate (Isordil Titradose) 20 mg PO TID [facility] Last Admin: 06/29/19 22:04 Dose: 20 mg Documented by: Magnesium Hydroxide (Milk Of Magnesia) 30 ml PO Q4H PRN PRN Reason: Constipation Last Admin: 06/29/19 18:38 Dose: 30 ml Documented by: Morphine Sulfate (Morphine) 2 mg IV Q4H PRN PRN Reason: Pain, Moderate (4-6) Morphine Sulfate (Morphine) 2 mg IV Q5MIN PRN PRN Reason: Chest Pain unrelieved by NTG Nitroglycerin (Nitrostat) 0.4 mg SL Q5M PRN PRN Reason: Chest Pain Last Admin: 06/29/19 08:03 Dose: 0.4 mg Documented by: Ondansetron HCl (Zofran) 4 mg IV Q8H PRN PRN Reason: Nausea And Vomiting Last Admin: 06/27/19 03:15 Dose: 4 mg Documented by: Sodium Chloride (Sodium Chloride Flush Syringe 10 Ml) 10 ml IV BID [facility] Last Admin: 06/29/19 22:06 Dose: 10 ml Documented by: Sodium Chloride (Sodium Chloride Flush Syringe 10 Ml) 10 ml IV PRN PRN PRN Reason: LINE FLUSH Review of Systems Constitutional: no weight loss, no weight gain, no fever, no chills, no anorexia, no fatigue, no weakness Cardiovascular: chest pain, orthopnea, shortness of breath, dyspnea on exertion, paroxysmal nocturnal dyspnea, high blood pressure, decreased exercise tolerance, no palpitations, no edema, no syncope, no lightheadedness, no leg edema Respiratory: cough, shortness of breath, dyspnea on exertion, congestion, no hemoptysis Gastrointestinal: no abdominal pain, no nausea, no vomiting, no diarrhea, no melena, no hematochezia Genitourinary Male: no dysuria, no hematuria Rectal: no bleeding Musculoskeletal: no low back pain, no morning stiffness, no muscle weakness, no muscle cramps Integumentary: no sores, no wounds, no jaundice Neurological: no convulsions, no aphasia, no change in speech, no change in mentation, no confusion Exam - Vital Signs Vital signs: Vital Signs Temp Pulse Resp BP Pulse Ox 98 F 74 18 122/78 98 06/27/19 00:10 06/27/19 00:10 06/27/19 00:10 06/27/19 00:10 06/27/19 00:10 - General Appearance General appearance: well-developed, well-nourished, appears stated age, other (no distress) EENT: ATNC, PERRL, mucous membranes moist, hearing intact, vision intact Neck: Present: neck supple, trachea midline Respiratory: Rales Heart: regular, S1S2, no murmurs Gastrointestinal: Present: normoactive bowel sounds. Absent: tenderness, distended Integumentary: no rash, warm and dry Neurologic: no focal deficit, no asterixis, alert and oriented x3 Musculoskeletal: Present: other (no edema) Psychiatric: cooperative Results - Lab Results 06/28/19 08:25 07/01/19 16:26 Most recent lab results Calcium 9.0 mg/dL (8.4-10.2) 06/29/19 06:04 Assessment and Plan 1. Acute kidney injury vs CKD stage 4: Likely CKD has progressed to stage 4. For the past few months his creatinine is around 3. Currently his renal function is around his baseline. Unilateral kidney. Monitor renal function. Avoid nephrotoxic agents. Meds dosage based on GFR. 2. FEN: Monitor lytes. 3. HFrEF: H/o CMP with EF 10%. Followed by Cards. 4. Chest pain: Resolved. 5. DM with hyperglycemia. 6. HTN.
[2019-06-30] MEDS: HEPARIN 5,000 UNIT/1 ML VIAL SUB-Q SCH ×3 (00:50→16:30)
[2019-06-30] MEDS: hydrALAZINE 10 MG TAB PO SCH ×3 (00:50→16:30)
[2019-06-30] MEDS: IPRATROPIUM/ALBUTEROL SULFATE 3 ML AMPUL.NEB IH SCH ×3 (08:11→21:41)
[2019-06-30 09:33] LABS: Albumin 2.7 g/dL (3.9-5); Calcium 8.2 mg/dL (8.4-10.2)
[2019-06-30] MEDS: carvediloL 6.25 MG TAB PO SCH ×2 (09:53→21:58)
[2019-06-30] MEDS: ASPIRIN EC 325 MG TAB PO SCH (09:53)
[2019-06-30] MEDS: ISOSORBIDE DINITRATE 20 MG TAB PO SCH ×3 (09:53→21:58)
[2019-06-30] MEDS: INSULIN LISPRO 100 UNIT/ML SUB-Q SCH ×2 (09:56→14:49)
[2019-06-30] MEDS: INSULIN REGULAR, HUMAN 100 UNITS/1 ML SUB-Q SCH ×5 (09:56→21:57)
--- NOTE | 2019-06-30 10:56 | Progress Note ---
Assessment and Plan Cardiac status is improving. Spoke with [employer]est hospital insurance representative, who reports that there were several attempts to reach patient and/or caregiver to send hospital insurance representative out to address problems with device; however, the rep was unable to reach either constitution party. Per company hospital insurance representative, they are not able to provide a loaner vest at this time and requested that device be brought to hospital; however, patient reports that caregiver is out of town. He was advised to ask another person to retrieve the device. Patient reports he has ICD implantation scheduled for August. Will schedule LHC for Tuesday, since there is no record of such procedure available and patient reports it was never done. Discussed with patient, who is amenable to this plan. Continue current cardiac management for now - diuresis on hold d/t renal insufficiency; additionally, patient does not appear to be in HF exacerbation. Await nephrology recommendations. The patient has been seen in conjunction with Dr. Judge, who agrees with the assessment and plan. - Patient Problems (1) Chest pain Current Visit: Yes Status: Acute (2) Cardiomyopathy Current Visit: Yes Status: Acute Qualifiers: Cardiomyopathy type: unspecified Qualified Code(s): I42.9 - Cardiomyopathy, unspecified (3) Chronic HFrEF (heart failure with reduced ejection fraction) Current Visit: Yes Status: Chronic (4) Hypertension Current Visit: Yes Status: Chronic (5) Type 2 diabetes mellitus Current Visit: Yes Status: Chronic (6) Uses LifeVest defibrillator Current Visit: Yes Status: Chronic (7) JEREMY (acute kidney injury) Current Visit: Yes Status: Acute (8) H/O unilateral nephrectomy Current Visit: Yes Status: Chronic Subjective Date of service: 06/30/19 Principal diagnosis: HF; COPD exac Interval history: The patient is lying in bed in [facility]. He has no complaints. SR in 80s with frequent runs of NSVT on telemetry noted. Medical records from [facility] reviewed - there is no record of ischemic w/u at that facility. Liver function abnormal. Patient reports his LifeVest is "not working," so he is not wearing it currently. Echo done at [facility] from 06/27 shows an EF of 30 to 35 percent with a restrictive LV diastolic filling pattern, a mild to moderately dilated RV, a moderately dilated RA and mild AR. Objective Last Vital Signs Temp 97.9 F 06/30/19 07:38 Pulse 77 06/30/19 10:00 Resp 20 06/30/19 08:11 BP 105/63 06/30/19 07:38 Pulse Ox 99 06/30/19 08:11 - Physical Examination General: No Apparent Distress HEENT: Positive: EOMI Neck: Positive: neck supple, trachea midline Cardiac: Positive: Reg Rate and Rhythm Lungs: Positive: Normal Exam Neuro: Positive: Grossly Intact Abdomen: Positive: Unremarkable /Rectal: Other (deferred) Skin: Positive: Clear Musculoskeletal: Normal Range of Motion Extremities: Present: normal, edema - Labs and Meds Cardiac Enzymes 06/30/19 Range/Units 08:52 AST 30 (5-40) units/L Comprehensive Metabolic Panel 06/30/19 Range/Units 08:52 Sodium 132 L (137-145) mmol/L Potassium 4.2 (3.6-5.0) mmol/L Chloride 101.4 (98-107) mmol/L Carbon Dioxide 19 L (22-30) mmol/L BUN 47 H (9-20) mg/dL Creatinine 2.7 H (0.8-1.5) mg/dL Glucose 250 H (75-100) mg/dL Calcium 8.2 L (8.4-10.2) mg/dL AST 30 (5-40) units/L ALT 28 (7-56) units/L Alkaline Phosphatase 131 H (35-129) units/L Total Protein 5.9 L (6.3-8.2) g/dL Albumin 2.7 L (3.9-5) g/dL - Imaging and Cardiology Echo: report reviewed (06/27/19: EF of 30-35% w/restrictive LV diastolic filling pattern, a mild to mod dilated RV, mod dilated RA, mild AR) - Telemetry EKG Rhythm: Sinus Rhythm - EKG Ventricular dysrhythmias: ventricular premature com, non-sustained ventricular
--- NOTE | 2019-06-30 16:04 | Progress Note ---
Assessment and Plan / Unstable angina Patient admitted to telemetry. We will monitor EKG and also monitor cardiac enzymes. Consulted cardiology for further evaluation and recommendation. Continue on daily aspirin, sublingual nitroglycerin and IV morphine as needed for chest pain Wait for medical records from the outside facility for further plan of care Echo 06/27/2019 reviewed - EF 30-35%, plan for cardiac cath on Tuesday /Acute on chronic CHFrEf - We will monitor in's and O's, diet and fluid restriction - Cannot diurese due to elevated creatinine -Cardiologic consulted, wait for medical records from outlying facility - scheduled for AICD implantation in July at [facility]. Medical records requested. - Echo 06/27/2019 reviewed - EF 30-35%, Pt reports that he has LifeVest at home ;/ COPD with exacerbation Patient placed on nebulizing treatments. We will keep oxygen saturation greater or equal to 92%. off steroids because of hyperglycemia / JEREMY (acute kidney injury) versus EKG We will monitor BUN and creatinine. Will hold diuretics at this time. We await further recommendation from cardiology in view of his history of congestive heart failure. consult nephrology as Cr has not improved / Diabetes mellitus, uncontrolled We will monitor Accu-Cheks and adjust insulin dose to better control diabetes / DVT prophylaxis We will place patient on subcutaneous heparin. Subjective Date of service: 06/30/19 Principal diagnosis: HF; COPD exac Interval history: Patient seen and examined. Medical records and medication list reviewed. No acute event overnight noted by the RN. Patient complaints of difficulty breathing on exertion and intermittent chest pain. Patient is tolerating diet. Patient is a very poor historian, renal function remained declined Discussed plan of care at bedside with patient. Objective - Exam Narrative Exam: GENERAL: well-developed -[place] male lying on bed appeared to be in no discomfort. HEENT: Normocephalic. Atraumatic. No conjunctival congestion or icterus. Patient has moist mucous membranes. NECK: Supple. Trachea midline. CHEST/LUNGS: Diffuse Rales auscultated bilaterally, breathing nonlabored. HEART/CARDIOVASCULAR: Regular in rate and rhythm. S1 and S2 positive. ABDOMEN: Abdomen is soft, nontender. Patient has normal bowel sounds. SKIN: There is no rash. Warm and dry. NEURO: No focal motor deficit. Follows command. MUSCULOSKELETAL: No joint effusion or tenderness. EXTRIMITY: No edema, no cyanosis or clubbing. PSYCH: Cooperative. - Constitutional Vitals: Vital Signs - 12hr 06/30/19 06/30/19 06/30/19 05:06 07:38 08:11 Temperature 98.2 F 97.9 F Pulse Rate 79 80 Pulse Rate [ 90 Bilateral Throughout] Respiratory 18 16 Rate Respiratory 20 Rate [Bilateral Throughout] Blood Pressure 112/77 105/63 O2 Sat by Pulse 99 95 99 Oximetry 06/30/19 06/30/19 06/30/19 10:00 12:33 13:33 Temperature Pulse Rate 77 79 Pulse Rate [ 87 Bilateral Throughout] Respiratory Rate Respiratory 20 Rate [Bilateral Throughout] Blood Pressure 111/80 O2 Sat by Pulse 98 Oximetry - Labs CBC & Chem 7: 06/28/19 08:25 06/30/19 08:52 Labs: Abnormal lab results 06/29/19 06/29/19 06/30/19 Range/Units 17:44 20:13 07:49 Sodium (137-145) mmol/L Carbon Dioxide (22-30) mmol/L BUN (9-20) mg/dL Creatinine (0.8-1.5) mg/dL Glucose (75-100) mg/dL POC Glucose 132 H 235 H 275 H (70-105) Calcium (8.4-10.2) mg/dL Magnesium (1.7-2.3) mg/dL Alkaline Phosphatase (35-129) units/L Total Protein (6.3-8.2) g/dL Albumin (3.9-5) g/dL 06/30/19 Range/Units 08:52 Sodium 132 L (137-145) mmol/L Carbon Dioxide 19 L (22-30) mmol/L BUN 47 H (9-20) mg/dL Creatinine 2.7 H (0.8-1.5) mg/dL Glucose 250 H (75-100) mg/dL POC Glucose (70-105) Calcium 8.2 L (8.4-10.2) mg/dL Magnesium 2.60 H (1.7-2.3) mg/dL Alkaline Phosphatase 131 H (35-129) units/L Total Protein 5.9 L (6.3-8.2) g/dL Albumin 2.7 L (3.9-5) g/dL
[2019-06-30] MEDS: INSULIN GLARGINE 100 UNITS/ML SUB-Q SCH (21:57)
--- NOTE | 2019-06-30 23:38 | Progress Note ---
Assessment and Plan 1. Acute kidney injury vs CKD stage 4: Likely CKD has progressed to stage 4. For the past few months his creatinine is around 3. Currently his renal function is stable around his baseline. Unilateral kidney. Monitor renal function. Avoid nephrotoxic agents. Meds dosage based on GFR. 2. FEN: Monitor lytes. 3. HFrEF: H/o CMP, EF 30-35%. Followed by Cards. 4. Chest pain: Resolved. 5. DM with hyperglycemia. 6. HTN. Examination: General appearance: well-developed, well-nourished, appears stated age, no distress HEENT: ATNC, JENELLE, mucous membranes moist, hearing intact, vision intact Neck: neck supple, trachea midline Respiratory: bibasal rales Heart: regular, S1S2, no murmurs Gastrointestinal: soft, normoactive bowel sounds, not tender, not distended Integumentary: no rash, warm and dry Neurologic: no focal deficit, no asterixis, alert and oriented x3 Ext: no edema Psychiatric: cooperative Subjective Date of service: 06/30/19 Principal diagnosis: HF; COPD exac Interval history: Patient was seen and examined at the bedside. Doing ok. Objective - Vital Signs Vital signs: Vital Signs - 12hr 06/30/19 06/30/19 06/30/19 12:33 13:33 17:05 Temperature Pulse Rate 79 83 Pulse Rate [ 87 Bilateral Throughout] Respiratory Rate Respiratory 20 Rate [Bilateral Throughout] Blood Pressure 111/80 100/71 O2 Sat by Pulse 98 97 Oximetry 06/30/19 06/30/19 19:25 20:36 Temperature 98.3 F Pulse Rate 83 83 Pulse Rate [ Bilateral Throughout] Respiratory 18 Rate Respiratory Rate [Bilateral Throughout] Blood Pressure 117/76 O2 Sat by Pulse 97 Oximetry - Lab 06/28/19 08:25 07/01/19 16:26 Most recent lab results Calcium 8.2 mg/dL (8.4-10.2) L 06/30/19 08:52 Phosphorus 3.40 mg/dL (2.5-4.5) 06/30/19 08:52 Magnesium 2.60 mg/dL (1.7-2.3) H 06/30/19 08:52 Medications & Allergies - Medications Allergies/Adverse Reactions: Allergies shellfish derived Allergy (Verified 06/27/19 00:29) Anaphylaxis Home Medications: Home Medications Medication Instructions Recorded Confirmed Last Taken Type Aspirin [Aspirin BABY CHEW TAB] 81 mg PO QDAY 06/27/19 06/27/19 Unknown History AtorvaSTATin [Lipitor] 10 mg PO QHS 06/27/19 06/27/19 Unknown History Insulin Glargine [Lantus VIAL] 40 unit SUB-Q QHS 06/27/19 06/27/19 Unknown History Insulin Lispro [Humalog 100 0.25 units SQ AC 06/27/19 06/27/19 Unknown History UNITS/ML Kwikpen] Isosorbide Dinitrate [Isordil 20 mg PO TID 06/27/19 06/27/19 Unknown History Titradose] Losartan Potassium 100 mg PO QDAY 06/27/19 06/27/19 Unknown History Melatonin 3 mg PO QHS 06/27/19 06/27/19 Unknown History Torsemide [Demadex] 20 mg PO QDAY 06/27/19 06/27/19 Unknown History carvediloL [Coreg] 6.25 mg PO BID 06/27/19 06/27/19 Unknown History hydrALAZINE [Apresoline TAB] 10 mg PO Q8H 06/27/19 06/27/19 Unknown History Active Medications: Generic Name Dose Route Start Last Admin Trade Name Freq PRN Reason Stop Dose Admin Acetaminophen 650 mg 06/27/19 03:02 Tylenol PO Q4H PRN Pain MILD(1-3)/Fever >100.5/ALFARO Albuterol 2.5 mg 06/28/19 00:01 Proventil IH Q4HRT PRN Shortness Of Breath Albuterol/Ipratropium 1 ampul 06/28/19 08:00 06/30/19 21:41 Duoneb *Not For Prn Use* IH 1 ampul TIDRT NANCY Administration Aspirin 325 mg 06/28/19 10:00 06/30/19 09:53 Ecotrin PO 325 mg QDAY NANCY Administration Atorvastatin Calcium 10 mg 06/27/19 22:00 06/30/19 21:58 Atorvastatin PO 10 mg QHS NANCY Administration Carvedilol 6.25 mg 06/27/19 10:00 06/30/19 21:58 Coreg PO 6.25 mg BID NANCY Administration Dextrose 50 ml 06/27/19 03:02 D50w (25gm) Syringe IV Q30MIN PRN Hypoglycemia Protocol Heparin Sodium (Porcine) 5,000 unit 06/27/19 08:00 06/30/19 16:30 Heparin SUB-Q 5,000 unit Q8H [facility] Administration Hydralazine HCl 10 mg 06/27/19 08:00 06/30/19 16:30 Apresoline PO 10 mg Q8H NANCY Administration Insulin Glargine 40 units 06/27/19 22:00 06/30/19 21:57 Lantus SUB-Q Not Given QHS [facility] Insulin Human Regular 5 units 06/29/19 11:30 06/30/19 17:29 Humulin R SUB-Q Not Given AC [facility] Insulin Human Regular 0 units 06/30/19 16:30 06/30/19 21:57 Humulin R SUB-Q Not Given ACHS [facility] Protocol Isosorbide Dinitrate 20 mg 06/27/19 08:00 06/30/19 21:58 Isordil Titradose PO 20 mg TID [facility] Administration Magnesium Hydroxide 30 ml 06/29/19 14:30 06/29/19 18:38 Milk Of Magnesia PO 30 ml Q4H PRN Administration Constipation Morphine Sulfate 2 mg 06/27/19 03:02 06/30/19 08:09 Morphine IV 2 mg Q4H PRN Administration Pain, Moderate (4-6) Morphine Sulfate 2 mg 06/27/19 03:02 Morphine IV Q5MIN PRN Chest Pain unrelieved by NTG Nitroglycerin 0.4 mg 06/27/19 03:02 06/29/19 08:03 Nitrostat SL 0.4 mg Q5M PRN Administration Chest Pain Ondansetron HCl 4 mg 06/27/19 03:02 06/27/19 03:15 Zofran IV 4 mg Q8H PRN Administration Nausea And Vomiting Sodium Chloride 10 ml 06/27/19 10:00 06/30/19 21:59 Sodium Chloride Flush Syringe 10 Ml IV 10 ml BID NANCY Administration Sodium Chloride 10 ml 06/27/19 03:02 Sodium Chloride Flush Syringe 10 Ml IV PRN PRN LINE FLUSH
[2019-07-01] MEDS ORDERED: guaiFENesin 200 MG TAB PO PRN (03:27)
[2019-07-01] MEDS: HEPARIN 5,000 UNIT/1 ML VIAL SUB-Q SCH ×4 (03:41→23:56)
[2019-07-01] MEDS: IPRATROPIUM/ALBUTEROL SULFATE 3 ML AMPUL.NEB IH SCH ×3 (07:50→21:18)
[2019-07-01] MEDS: guaiFENesin 100 MG/5 ML ORAL LIQD PO PRN ×2 (08:15→20:46)
[2019-07-01] MEDS: INSULIN REGULAR, HUMAN 100 UNITS/1 ML SUB-Q SCH ×7 (09:10→22:43)
--- NOTE | 2019-07-01 10:49 | Progress Note ---
Assessment and Plan [facility] scheduled for tomorrow. Per patient, LifeVest will arrive tomorrow. [employer] contacted today - franchise sales representative will call when available to troubleshoot device. Cardiac status is otherwise stable. Continue current management. The patient has been seen in conjunction with Dr. Judge, who agrees with the assessment and plan. - Patient Problems (1) Chest pain Current Visit: Yes Status: Acute (2) Cardiomyopathy Current Visit: Yes Status: Acute Qualifiers: Cardiomyopathy type: unspecified Qualified Code(s): I42.9 - Cardiomyopathy, unspecified (3) Chronic HFrEF (heart failure with reduced ejection fraction) Current Visit: Yes Status: Chronic (4) Hypertension Current Visit: Yes Status: Chronic (5) Type 2 diabetes mellitus Current Visit: Yes Status: Chronic (6) Uses LifeVest defibrillator Current Visit: Yes Status: Chronic (7) JEREMY (acute kidney injury) Current Visit: Yes Status: Acute (8) H/O unilateral nephrectomy Current Visit: Yes Status: Chronic Subjective Date of service: 07/01/19 Principal diagnosis: HF; COPD exac Interval history: The patient is lying in bed in NAD. He c/o strong and persistent cough, but no cardiac complaints. SR in 90s with PVCs on telemetry. He is currently not wearing LifeVest. Objective Last Vital Signs Temp 98.4 F 07/01/19 04:00 Pulse 84 07/01/19 08:10 Resp 18 07/01/19 08:10 BP 119/80 07/01/19 04:00 Pulse Ox 97 07/01/19 08:54 - Physical Examination General: No Apparent Distress HEENT: Positive: PERRL, EOMI Neck: Positive: neck supple, trachea midline Cardiac: Positive: Reg Rate and Rhythm Lungs: Positive: Normal Exam Neuro: Positive: Grossly Intact Abdomen: Positive: Unremarkable /Rectal: Other (deferred) Skin: Positive: Clear Musculoskeletal: Normal Range of Motion Extremities: Present: normal - Imaging and Cardiology Echo: report reviewed (06/27/19: EF of 30-35% w/restrictive LV diastolic filling pattern, a mild to mod dilated RV, mod dilated RA, mild AR) - Telemetry EKG Rhythm: Sinus Rhythm - EKG Ventricular dysrhythmias: ventricular premature com, non-sustained ventricular
[2019-07-01] MEDS: ASPIRIN EC 325 MG TAB PO SCH (11:06)
[2019-07-01] MEDS: carvediloL 6.25 MG TAB PO SCH ×2 (11:06→22:43)
[2019-07-01] MEDS: ISOSORBIDE DINITRATE 20 MG TAB PO SCH ×3 (11:08→22:43)
[2019-07-01] MEDS: hydrALAZINE 10 MG TAB PO SCH ×3 (11:08→16:59)
--- NOTE | 2019-07-01 15:01 | Progress Note ---
Assessment and Plan / Unstable angina Patient admitted to telemetry. We will monitor EKG and also monitor cardiac enzymes. Consulted cardiology for further evaluation and recommendation. Continue on daily aspirin, sublingual nitroglycerin and IV morphine as needed for chest pain Wait for medical records from the outside facility for further plan of care Echo 06/27/2019 reviewed - EF 30-35%, postponded cardiac cath for renal insufficiency /Acute on chronic systolic CHFrEf - We will monitor in's and O's, diet and fluid restriction - Cannot diurese due to elevated creatinine -Cardiologic consulted, wait for medical records from outlying facility - scheduled for AICD implantation in July at [facility]. Medical records requested. - Echo 06/27/2019 reviewed - EF 30-35%, Pt reports that he has LifeVest at home ;/ COPD with exacerbation Patient placed on nebulizing treatments. We will keep oxygen saturation greater or equal to 92%. off steroids because of hyperglycemia / JEREMY (acute kidney injury) on ckd4 We will monitor BUN and creatinine. Will hold diuretics at this time. We await further recommendation from cardiology in view of his history of congestive heart failure. consulted nephrology as Cr has not improved / Diabetes mellitus, uncontrolled We will monitor Accu-Cheks and adjust insulin dose to better control diabetes / DVT prophylaxis We will place patient on subcutaneous heparin. disposition: d/c pending on life vest Subjective Date of service: 07/01/19 Principal diagnosis: HF; COPD exac Interval history: Patient seen and examined. Medical records and medication list reviewed. No acute event overnight noted by the RN. Patient complaints of difficulty breathing on exertion and intermittent chest pain. Patient is tolerating diet. Patient is a very poor historian, waiting on lifevest Discussed plan of care at bedside with patient. Objective - Exam Narrative Exam: GENERAL: well-developed -[place] male lying on bed appeared to be in no discomfort. HEENT: Normocephalic. Atraumatic. No conjunctival congestion or icterus. Patient has moist mucous membranes. NECK: Supple. Trachea midline. CHEST/LUNGS: Diffuse Rales auscultated bilaterally, breathing nonlabored. HEART/CARDIOVASCULAR: Regular in rate and rhythm. S1 and S2 positive. ABDOMEN: Abdomen is soft, nontender. Patient has normal bowel sounds. SKIN: There is no rash. Warm and dry. NEURO: No focal motor deficit. Follows command. MUSCULOSKELETAL: No joint effusion or tenderness. EXTRIMITY: No edema, no cyanosis or clubbing. PSYCH: Cooperative. - Constitutional Vitals: Vital Signs - 12hr 07/01/19 07/01/19 07/01/19 04:00 08:10 08:54 Temperature 98.4 F Pulse Rate 84 Pulse Rate [ 84 Bilateral Throughout] Respiratory 18 Rate Respiratory 18 Rate [Bilateral Throughout] Blood Pressure 119/80 [Right] O2 Sat by Pulse 97 97 Oximetry 07/01/19 07/01/19 13:59 14:00 Temperature Pulse Rate 79 Pulse Rate [ 84 Bilateral Throughout] Respiratory Rate Respiratory 18 Rate [Bilateral Throughout] Blood Pressure [Right] O2 Sat by Pulse Oximetry - Labs CBC & Chem 7: 06/28/19 08:25 07/02/19 07:51 Labs: Abnormal lab results 06/30/19 06/30/19 07/01/19 Range/Units 12:44 20:04 09:02 POC Glucose 243 H 113 H 156 H (70-105) 07/01/19 Range/Units 12:26 POC Glucose 169 H (70-105)
[2019-07-01 16:59] LABS: Calcium 8.2 mg/dL (8.4-10.2)
[2019-07-01] MEDS: ONDANSETRON 4 MG/2 ML INJ IV PRN (20:46)
--- NOTE | 2019-07-01 22:00 | Progress Note ---
Assessment and Plan 1. Acute kidney injury vs CKD stage 4: Likely CKD has progressed to stage 4. For the past few months his creatinine is around 3. Currently his renal function is stable around his baseline. Unilateral kidney. Monitor renal function. Avoid nephrotoxic agents. Meds dosage based on GFR. 2. FEN: Monitor lytes. 3. HFrEF: H/o CMP, EF 30-35%. Followed by Cards. 4. Chest pain: Resolved. 5. COPD exacerbation: Improving. 6. DM: Blood sugar is better. 7. HTN. Examination: General appearance: well-developed, well-nourished, appears stated age, no distress HEENT: ATNC, JENELLE, mucous membranes moist, hearing intact, vision intact Neck: neck supple, trachea midline Respiratory: bibasal rales Heart: regular, S1S2, no murmurs Gastrointestinal: soft, normoactive bowel sounds, not tender, not distended Integumentary: no rash, warm and dry Neurologic: no focal deficit, no asterixis, alert and oriented x3 Ext: no edema Psychiatric: cooperative Subjective Date of service: 07/01/19 Principal diagnosis: HF; COPD exac Interval history: Patient was seen and examined at the bedside. Doing ok. Objective - Vital Signs Vital signs: Vital Signs - 12hr 07/01/19 07/01/19 07/01/19 13:59 14:00 16:56 Temperature Pulse Rate 79 85 Pulse Rate [ 84 Bilateral Throughout] Respiratory Rate Respiratory 18 Rate [Bilateral Throughout] Blood Pressure 110/82 O2 Sat by Pulse 98 Oximetry 07/01/19 07/01/19 19:33 20:52 Temperature 98.0 F Pulse Rate 87 87 Pulse Rate [ Bilateral Throughout] Respiratory 20 Rate Respiratory Rate [Bilateral Throughout] Blood Pressure 112/79 O2 Sat by Pulse 95 Oximetry - Lab 06/28/19 08:25 07/01/19 16:26 Most recent lab results Calcium 8.2 mg/dL (8.4-10.2) L 07/01/19 16:26 Phosphorus 3.40 mg/dL (2.5-4.5) 06/30/19 08:52 Magnesium 2.60 mg/dL (1.7-2.3) H 06/30/19 08:52 Medications & Allergies - Medications Allergies/Adverse Reactions: Allergies shellfish derived Allergy (Verified 06/27/19 00:29) Anaphylaxis Home Medications: Home Medications Medication Instructions Recorded Confirmed Last Taken Type Aspirin [Aspirin BABY CHEW TAB] 81 mg PO QDAY 06/27/19 06/27/19 Unknown History AtorvaSTATin [Lipitor] 10 mg PO QHS 06/27/19 06/27/19 Unknown History Insulin Glargine [Lantus VIAL] 40 unit SUB-Q QHS 06/27/19 06/27/19 Unknown History Insulin Lispro [Humalog 100 0.25 units SQ AC 06/27/19 06/27/19 Unknown History UNITS/ML Kwikpen] Isosorbide Dinitrate [Isordil 20 mg PO TID 06/27/19 06/27/19 Unknown History Titradose] Losartan Potassium 100 mg PO QDAY 06/27/19 06/27/19 Unknown History Melatonin 3 mg PO QHS 06/27/19 06/27/19 Unknown History Torsemide [Demadex] 20 mg PO QDAY 06/27/19 06/27/19 Unknown History carvediloL [Coreg] 6.25 mg PO BID 06/27/19 06/27/19 Unknown History hydrALAZINE [Apresoline TAB] 10 mg PO Q8H 06/27/19 06/27/19 Unknown History Active Medications: Generic Name Dose Route Start Last Admin Trade Name Freq PRN Reason Stop Dose Admin Acetaminophen 650 mg 06/27/19 03:02 Tylenol PO Q4H PRN Pain MILD(1-3)/Fever >100.5/ALFARO Albuterol 2.5 mg 06/28/19 00:01 Proventil IH Q4HRT PRN Shortness Of Breath Albuterol/Ipratropium 1 ampul 06/28/19 08:00 07/01/19 21:18 Duoneb *Not For Prn Use* IH Not Given TIDRT NANCY Aspirin 325 mg 06/28/19 10:00 07/01/19 11:06 Ecotrin PO 325 mg QDAY NANCY Administration Atorvastatin Calcium 10 mg 06/27/19 22:00 06/30/19 21:58 Atorvastatin PO 10 mg QHS NANCY Administration Carvedilol 6.25 mg 06/27/19 10:00 07/01/19 11:06 Coreg PO 6.25 mg BID NANCY Administration Dextrose 50 ml 06/27/19 03:02 D50w (25gm) Syringe IV Q30MIN PRN Hypoglycemia Protocol Guaifenesin 200 mg 07/01/19 08:11 07/01/19 08:15 Robitussin PO 200 mg Q4H PRN Administration Cough Heparin Sodium (Porcine) 5,000 unit 06/27/19 08:00 07/01/19 17:30 Heparin SUB-Q Not Given Q8H [facility] Hydralazine HCl 10 mg 06/27/19 08:00 07/01/19 16:59 Apresoline PO 10 mg Q8H NANCY Administration Insulin Glargine 40 units 06/27/19 22:00 06/30/19 21:57 Lantus SUB-Q Not Given QHS [facility] Insulin Human Regular 5 units 06/29/19 11:30 07/01/19 16:59 Humulin R SUB-Q Not Given AC [facility] Insulin Human Regular 0 units 06/30/19 16:30 07/01/19 16:59 Humulin R SUB-Q Not Given ACHS [facility] Protocol Isosorbide Dinitrate 20 mg 06/27/19 08:00 07/01/19 14:28 Isordil Titradose PO 20 mg TID NANCY Administration Magnesium Hydroxide 30 ml 06/29/19 14:30 06/29/19 18:38 Milk Of Magnesia PO 30 ml Q4H PRN Administration Constipation Morphine Sulfate 2 mg 06/27/19 03:02 06/30/19 08:09 Morphine IV 2 mg Q4H PRN Administration Pain, Moderate (4-6) Morphine Sulfate 2 mg 06/27/19 03:02 Morphine IV Q5MIN PRN Chest Pain unrelieved by NTG Nitroglycerin 0.4 mg 06/27/19 03:02 06/29/19 08:03 Nitrostat SL 0.4 mg Q5M PRN Administration Chest Pain Ondansetron HCl 4 mg 06/27/19 03:02 07/01/19 20:46 Zofran IV 4 mg Q8H PRN Administration Nausea And Vomiting Sodium Chloride 10 ml 06/27/19 10:00 07/01/19 11:09 Sodium Chloride Flush Syringe 10 Ml IV 10 ml BID NANCY Administration Sodium Chloride 10 ml 06/27/19 03:02 Sodium Chloride Flush Syringe 10 Ml IV PRN PRN LINE FLUSH
[2019-07-01] MEDS: INSULIN GLARGINE 100 UNITS/ML SUB-Q SCH (22:43)
[2019-07-02] MEDS: hydrALAZINE 10 MG TAB PO SCH ×3 (00:10→17:16)
[2019-07-02] MEDS: IPRATROPIUM/ALBUTEROL SULFATE 3 ML AMPUL.NEB IH SCH ×2 (08:30→14:52)
[2019-07-02 08:34] LABS: INR 1.15 (0.87-1.13)
[2019-07-02 08:43] LABS: Calcium 8.7 mg/dL (8.4-10.2)
[2019-07-02] MEDS: ISOSORBIDE DINITRATE 20 MG TAB PO SCH ×2 (08:57→17:16)
[2019-07-02] MEDS: HEPARIN 5,000 UNIT/1 ML VIAL SUB-Q SCH ×2 (08:58→17:16)
[2019-07-02] MEDS: INSULIN REGULAR, HUMAN 100 UNITS/1 ML SUB-Q SCH ×6 (10:16→19:48)
[2019-07-02] MEDS: ASPIRIN EC 325 MG TAB PO SCH (10:17)
[2019-07-02] MEDS: carvediloL 6.25 MG TAB PO SCH (10:17)
--- NOTE | 2019-07-02 13:08 | Progress Note ---
Assessment and Plan 1. Acute kidney injury: JEREMY superimposed on CKD stage 3. Renal function continue to improve and around his baseline. Unilateral kidney. Monitor renal function. Avoid nephrotoxic agents. Meds dosage based on GFR. 2. FEN: Monitor lytes. 3. HFrEF: H/o CMP, EF 30-35%. Followed by Cards. 4. Chest pain: Resolved. 5. COPD exacerbation: Improving. 6. DM: Blood sugar is better. 7. HTN. F/u with me in 1-2 weeks. Examination: General appearance: well-developed, well-nourished, appears stated age, no distress HEENT: ATNC, JENELLE, mucous membranes moist, hearing intact, vision intact Neck: neck supple, trachea midline Respiratory: bibasal rales Heart: regular, S1S2, no murmurs Gastrointestinal: soft, normoactive bowel sounds, not tender, not distended Integumentary: no rash, warm and dry Neurologic: no focal deficit, no asterixis, alert and oriented x3 Ext: no edema Psychiatric: cooperative Subjective Date of service: 07/02/19 Principal diagnosis: HF; COPD exac Interval history: Patient was seen and examined at the bedside. Doing better. Objective - Vital Signs Vital signs: Vital Signs - 12hr 07/02/19 07/02/19 07/02/19 06:15 08:57 08:58 Temperature 97.8 F Pulse Rate 80 82 82 Respiratory 18 Rate Blood Pressure 116/87 125/86 125/86 O2 Sat by Pulse 99 Oximetry 07/02/19 10:17 Temperature Pulse Rate 77 Respiratory Rate Blood Pressure 124/76 O2 Sat by Pulse Oximetry - Lab 06/28/19 08:25 07/02/19 07:51 Most recent lab results Calcium 8.7 mg/dL (8.4-10.2) 07/02/19 07:51 Phosphorus 3.40 mg/dL (2.5-4.5) 06/30/19 08:52 Magnesium 2.60 mg/dL (1.7-2.3) H 06/30/19 08:52 Medications & Allergies - Medications Allergies/Adverse Reactions: Allergies shellfish derived Allergy (Verified 06/27/19 00:29) Anaphylaxis Home Medications: Home Medications Medication Instructions Recorded Confirmed Last Taken Type Aspirin [Aspirin BABY CHEW TAB] 81 mg PO QDAY 06/27/19 06/27/19 Unknown History AtorvaSTATin 10 mg PO QHS 06/27/19 06/27/19 Unknown History Insulin Glargine [Lantus VIAL] 40 unit SUB-Q QHS 06/27/19 06/27/19 Unknown History Isosorbide Dinitrate [Isordil 20 mg PO TID 06/27/19 06/27/19 Unknown History Titradose] Melatonin 3 mg PO QHS 06/27/19 06/27/19 Unknown History Torsemide [Demadex] 20 mg PO QDAY 06/27/19 06/27/19 Unknown History carvediloL [Coreg] 6.25 mg PO BID 06/27/19 06/27/19 Unknown History hydrALAZINE [Apresoline TAB] 10 mg PO Q8H 06/27/19 06/27/19 Unknown History Insulin Regular, Human [HumuLIN R] 5 units SUB-Q AC #10 ml 07/02/19 Unknown Rx Active Medications: Generic Name Dose Route Start Last Admin Trade Name Freq PRN Reason Stop Dose Admin Acetaminophen 650 mg 06/27/19 03:02 Tylenol PO Q4H PRN Pain MILD(1-3)/Fever >100.5/ALFARO Albuterol 2.5 mg 06/28/19 00:01 Proventil IH Q4HRT PRN Shortness Of Breath Albuterol/Ipratropium 1 ampul 06/28/19 08:00 07/02/19 08:30 Duoneb *Not For Prn Use* IH Not Given TIDRT NANCY Aspirin 325 mg 06/28/19 10:00 07/02/19 10:17 Ecotrin PO 325 mg QDAY NANCY Administration Atorvastatin Calcium 10 mg 06/27/19 22:00 07/01/19 22:43 Atorvastatin PO Not Given QHS NANCY Carvedilol 6.25 mg 06/27/19 10:00 07/02/19 10:17 Coreg PO 6.25 mg BID NANCY Administration Dextrose 50 ml 06/27/19 03:02 D50w (25gm) Syringe IV Q30MIN PRN Hypoglycemia Protocol Guaifenesin 200 mg 07/01/19 08:11 07/01/19 08:15 Robitussin PO 200 mg Q4H PRN Administration Cough Heparin Sodium (Porcine) 5,000 unit 06/27/19 08:00 07/02/19 08:58 Heparin SUB-Q 5,000 unit Q8H NANCY Administration Hydralazine HCl 10 mg 06/27/19 08:00 07/02/19 08:58 Apresoline PO 10 mg Q8H NANCY Administration Insulin Glargine 40 units 06/27/19 22:00 07/01/19 22:43 Lantus SUB-Q Not Given QHS NANCY Insulin Human Regular 5 units 06/29/19 11:30 07/02/19 10:16 Humulin R SUB-Q 5 units AC NANCY Administration Insulin Human Regular 0 units 06/30/19 16:30 07/02/19 10:16 Humulin R SUB-Q 3 units ACHS NANCY Administration Protocol Isosorbide Dinitrate 20 mg 06/27/19 08:00 07/02/19 08:57 Isordil Titradose PO 20 mg TID NANCY Administration Magnesium Hydroxide 30 ml 06/29/19 14:30 06/29/19 18:38 Milk Of Magnesia PO 30 ml Q4H PRN Administration Constipation Morphine Sulfate 2 mg 06/27/19 03:02 06/30/19 08:09 Morphine IV 2 mg Q4H PRN Administration Pain, Moderate (4-6) Morphine Sulfate 2 mg 06/27/19 03:02 Morphine IV Q5MIN PRN Chest Pain unrelieved by NTG Nitroglycerin 0.4 mg 06/27/19 03:02 06/29/19 08:03 Nitrostat SL 0.4 mg Q5M PRN Administration Chest Pain Ondansetron HCl 4 mg 06/27/19 03:02 07/01/19 20:46 Zofran IV 4 mg Q8H PRN Administration Nausea And Vomiting Sodium Chloride 10 ml 06/27/19 10:00 07/02/19 10:21 Sodium Chloride Flush Syringe 10 Ml IV 10 ml BID NANCY Administration Sodium Chloride 10 ml 06/27/19 03:02 Sodium Chloride Flush Syringe 10 Ml IV PRN PRN LINE FLUSH
--- NOTE | 2019-07-02 15:12 | Discharge Summary ---
Providers - Providers Date of Admission: 06/27/19 03:35 Date of discharge: 07/02/19 Attending physician: LINA URIAS 06/27/19 Consult to Cardiac Rehabilitation [CONS] Routine Reason For Exam: Phase I 06/27/19 03:05 Consult to Cardiology [CONS] Routine Consulting Provider: HIWOT RUIZ Reason For Exam: CHEST PAIN 06/29/19 11:40 Consult to Physician [CONS] Routine Comment: Consulting Provider: PAMELLA RIVERA Physician Instructions: Reason For Exam: CKD Primary care physician: METAL MELTER Hospitalization Condition: Stable Hospital course: Discharge diagnosis; / Unstable angina Patient admitted to telemetry. We will monitor EKG and also monitor cardiac enzymes. Consulted cardiology for further evaluation and recommendation. Continue on daily aspirin, sublingual nitroglycerin and IV morphine as needed for chest pain Wait for medical records from the outside facility for further plan of care Echo 06/27/2019 reviewed - EF 30-35%, postponded cardiac cath for renal insufficiency /Acute on chronic systolic CHFrEf - We will monitor in's and O's, diet and fluid restriction - Cannot diurese due to elevated creatinine -Cardiologic consulted, wait for medical records from outlying facility - scheduled for AICD implantation in July at [facility]. Medical records requested. - Echo 06/27/2019 reviewed - EF 30-35%, Pt reports that he has LifeVest at home ;/ COPD with exacerbation Patient placed on nebulizing treatments. We will keep oxygen saturation greater or equal to 92%. off steroids because of hyperglycemia / JEREMY (acute kidney injury) on ckd4 We will monitor BUN and creatinine. Will hold diuretics at this time. We await further recommendation from cardiology in view of his history of congestive heart failure. consulted nephrology as Cr has not improved / Diabetes mellitus, uncontrolled We will monitor Accu-Cheks and adjust insulin dose to better control diabetes / DVT prophylaxis We will place patient on subcutaneous heparin. disposition: d/c pending on life vest Disposition: [id number] HOME UNDER HOME [facility] Time spent for discharge: 34 minutes Core Measure Documentation - Palliative Care Palliative Care/ Comfort Measures: Not Applicable - Core Measures Any of the following diagnoses?: heart failure - Heart Failure Discharge Requirements SUSANNE/ARB for LVSD if EF <40%: No Reason for no SUSANNE/ARB: Renal impairment Beta bessy at discharge: Yes Exam - Physical Exam Narrative exam: GENERAL: well-developed -[place]namese male lying on bed appeared to be in no discomfort. HEENT: Normocephalic. Atraumatic. No conjunctival congestion or icterus. Patient has moist mucous membranes. NECK: Supple. Trachea midline. CHEST/LUNGS: Diffuse Rales auscultated bilaterally, breathing nonlabored. HEART/CARDIOVASCULAR: Regular in rate and rhythm. S1 and S2 positive. ABDOMEN: Abdomen is soft, nontender. Patient has normal bowel sounds. SKIN: There is no rash. Warm and dry. NEURO: No focal motor deficit. Follows command. MUSCULOSKELETAL: No joint effusion or tenderness. EXTRIMITY: No edema, no cyanosis or clubbing. PSYCH: Cooperative. - Constitutional Vitals: Temp Pulse Resp BP Pulse Ox 97.8 F 77 18 124/76 99 07/02/19 06:15 07/02/19 10:17 07/02/19 06:15 07/02/19 10:17 07/02/19 06:15 Plan Activity: advance as tolerated Weight Bearing Status: Weight Bear as Tolerated Diet: low fat, low salt, diabetic Special Instructions: restrict fluid intake to (1.2 L daily) Additional Instructions: repeat BMP in one week Follow up with: PRIMARY CAREMD [Primary Care Provider] - 7 Days PAMELLA RIVERA MD [Staff Physician] - 7 Days Prescriptions: Insulin Regular, Human [HumuLIN R] 5 units SUB-Q AC #10 ml
[2019-07-02 15:19] LABS: Bilirubin,Urine NEG (Negative); Blood,Urine SM (Negative); Color,Urine Yellow (Yellow); WBC,Urine < 1.0 /HPF (0.0-6.0)
--- NOTE | 2019-07-02 15:52 | Progress Note ---
Assessment and Plan Pt reports the he underwent stress test at [facility] which was negative for ischemia, showed "weak heart". Currently stable cardiac status. Pt is in the process of obtaining LifeVest from his fiance. Pt may discharge from cardiology standpoint. Recommend pt follow up with his primary cardiology team within 3-5 days of discharge. The patient has been seen in conjunction with Dr. Giron who agrees with the assessment and plan. - Patient Problems (1) Chest pain Current Visit: Yes Status: Resolved (2) Cardiomyopathy Current Visit: Yes Status: Acute Qualifiers: Cardiomyopathy type: unspecified Qualified Code(s): I42.9 - Cardiomyopathy, unspecified (3) Acute on chronic HFrEF (heart failure with reduced ejection fraction) Current Visit: Yes Status: Chronic (4) Hypertension Current Visit: Yes Status: Chronic (5) Type 2 diabetes mellitus Current Visit: Yes Status: Chronic (6) Uses LifeVest defibrillator Current Visit: Yes Status: Chronic (7) JEREMY (acute kidney injury) Current Visit: Yes Status: Acute (8) H/O unilateral nephrectomy Current Visit: Yes Status: Chronic Subjective Date of service: 07/02/19 Principal diagnosis: HF; COPD exac Interval history: pt resting in bed, c/o n/v overnight, no current cardiac complaints. in SR on tele. Objective Last Vital Signs Temp 97.8 F 07/02/19 06:15 Pulse 77 07/02/19 10:17 Resp 18 07/02/19 06:15 BP 124/76 07/02/19 10:17 Pulse Ox 99 07/02/19 06:15 - Physical Examination General: No Apparent Distress HEENT: Positive: PERRL, EOMI Neck: Positive: neck supple, trachea midline Cardiac: Positive: Reg Rate and Rhythm, S1/S2 Lungs: Positive: Decreased Breath Sounds Neuro: Positive: Grossly Intact Abdomen: Positive: Unremarkable /Rectal: Other (deferred) Skin: Positive: Clear Musculoskeletal: Normal Range of Motion Extremities: Present: normal - Labs and Meds Coagulation 07/02/19 Range/Units 07:51 PT 14.9 (12.2-14.9) Sec. INR 1.15 H (0.87-1.13) Comprehensive Metabolic Panel 07/01/19 07/02/19 Range/Units 16:26 07:51 Sodium 138 138 (137-145) mmol/L Potassium 4.3 4.7 (3.6-5.0) mmol/L Chloride 102.5 102.9 (98-107) mmol/L Carbon Dioxide 23 20 L (22-30) mmol/L BUN 46 H 44 H (9-20) mg/dL Creatinine 2.8 H 2.6 H (0.8-1.5) mg/dL Glucose 141 H 249 H (75-100) mg/dL Calcium 8.2 L 8.7 (8.4-10.2) mg/dL - Imaging and Cardiology Echo: report reviewed (06/27/19: EF of 30-35% w/restrictive LV diastolic filling pattern, a mild to mod dilated RV, mod dilated RA, mild AR) - EKG Ventricular dysrhythmias: ventricular premature com, non-sustained ventricular
[2019-07-02 17:17] VITALS: BP 120/87
== END 2019-07-02 17:45 | disposition home or self-care (01) | DRG 291 ==
LOC: ED 23:32 → 4A 06-27 03:35
PROVIDERS: ADMIT Internal Medicine Geriatric Medicine; ATTEND Internal Medicine
DX: I13.0 Hypertensive heart and chronic kidney disease with heart failure and stage 1 through stage 4 chronic kidney disease, or unspecified chronic kidney disease (principal); I50.23 Acute on chronic systolic (congestive) heart failure; N17.9 Acute kidney failure, unspecified; E11.22 Type 2 diabetes mellitus with diabetic chronic kidney disease; E11.65 Type 2 diabetes mellitus with hyperglycemia; I20.0 Unstable angina; J44.1 Chronic obstructive pulmonary disease with (acute) exacerbation; N18.4 Chronic kidney disease, stage 4 (severe); Z79.4 Long term (current) use of insulin
CPT/HCPCS: 36415; 71045; 80048; 80053; 80061; 80307; 81001; 82962; 83735; 83880; 84100; 84484; 85025; 85610; 85730; 93005; 93010; 93306; 94640; 94644; 94760; G0378; A9270-GY; J1644; J1815; J2270; J2405; J2920